=== PATIENT | female | born 1955 | race Hispanic/Latino ===

== ENCOUNTER 2021-02-07 07:51 | Emergency (ER) | payer OTHER ==
--- OUTSIDE RECORDS SUMMARY | 2021-02-07 07:55 | XMS REPORT | Continuity of Care Document ---
:1955 Author Organization [facility] t Address [address] [place] [address] Care Team Providers Name Role Phone Asked, No Pcp Primary Care Physician Unavailable Singer PARRA Attending Clinician Doctor Unassigned, Name Attending Clinician Unavailable Melquiades BOSCH, R Attending Clinician Problems This patient has no known problems. Allergies, Adverse Reactions, Alerts This patient has no known allergies or adverse reactions. Social History Social Habit Start Date Stop Date Quantity Comments Source Sex Assigned At [birth year] [facility]ist 00:00:00 00:00:00 Medications This patient has no known medications. Procedures This patient has no known procedures. Plan of Care Planned Activity Planned Date Details Comments Source Future Scheduled 2021-03-13 INFLUENZA VACCINE [place] [employer] [facility] 00:00:00 [code = INFLUENZA VACCINE] Future Scheduled 2007 BREAST CANCER [facility] Test 00:00:00 SCREENING [code = BREAST CANCER SCREENING] Future Scheduled 2007 COLONOSCOPY SCREENING [place] [employer] [facility] 00:00:00 [code = COLONOSCOPY SCREENING] Future Scheduled 2007 SHINGLES VACCINES [place] [employer] [facility] 00:00:00 (#1) [code = SHINGLES VACCINES (#1)] Future Scheduled [facility] malignant neoplasm of cervix (procedure) [code = 589775281] Future Scheduled 1969 COVID-19 VACCINE (1) [facility]inf[facility] [employer] [facility] 00:00:00 [code = COVID-19 VACCINE (1)] Encounters Start End Encounter Admission Attending Care Care Encounter Source Date/Time Date/Time Type Type Clinicians Facility Department ID 2020-07-18 2020-07-18 Emergency Singer [facility] [place] [id number] 08:45:00 10:00:00 Marty Carbone [id number] [place] [id number] [place] [id number] 2020-07-18 2020-07-18 Orders Doctor SAVANA [id number] 00:00:00 00:00:00 Only UnassignedLISSY [id number] [place] [id number] 2019-06-21 2019-06-21 Orders Doctor SAVANA [id number] 00:00:00 00:00:00 Only UnassignedLISSY [id number] [place] [id number] 2019-02-22 2019-02-22 [facility] [id number] 10:06:44 23:59:00 Encounter aChato [id number] [place] [id number] [place] [id number] Results This patient has no known results.
[2021-02-07 08:58] LABS: Urine Blood Trace-intact (Negative); Urine Glucose Negative (Negative); Urine Protein Negative (Negative); Urine Specific Gravity 1.015 (1.005-1.030)
[2021-02-07 10:07] LABS: Absolute Lymphocytes (CBC) 1.9 K/uL (0.7-4.9); Basophils % 0.7 % (0-1.3); Hematocrit 43.2 % (36.0-45.0); Lymphocytes % 19.1 % (15.3-44.8); MPV 9.3 fL (7.6-11.3); RBC Red Blood Cell Count 4.97 M/uL (3.86-4.86)
[2021-02-07 10:14] LABS: Protime INR 1.05
--- NOTE | 2021-02-07 10:14 | RAD REPORT ---
EXAM DESCRIPTION: CT - Abdomen Pelvis W Contrast - 02/07/2021 10:03 am CLINICAL HISTORY: Abdominal pain COMPARISON: none. TECHNIQUE: Computed axial tomography of the abdomen pelvis was obtained. 100 cc Isovue-300 was admin istered intravenously. Oral contrast was not requested which limits evaluation of bowel. All CT scans are performed using dose optimization technique as appropriate and may include automated exposure control or mA/KV adjustment according to patient size. FINDINGS: Mild fatty liver. Spleen, pancreas, right adrenal and kidneys appear unremarkable. 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 The appendix is normal caliber. 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 .
[2021-02-07 10:26] LABS: ALT/SGPT 23 U/L (12-78); AST/SGOT 16 U/L (15-37); Albumin 3.8 g/dL (3.4-5.0); Alkaline Phosphatase 135 U/L (45-117); BUN Blood Urea Nitrogen 16 mg/dL (7-18); Bicarbonate 31 mmol/L (21-32); Bilirubin Direct 0.1 mg/dL (0-0.2); Bilirubin Total 0.6 mg/dL (0.2-1.0); Glucose Level 103 mg/dL (74-106); Magnesium 2.1 mg/dL (1.8-2.4); NT PRO-BNP 39 pg/mL (<125); Potassium 3.9 mmol/L (3.5-5.1); Protein, Total 8.2 g/dL (6.4-8.2); Sodium Level 143 mmol/L (136-145); Troponin (Emerg Dept Use Only) < 0.02 ng/mL (0.0-0.045)
--- NOTE | 2021-02-07 11:16 | RAD REPORT ---
EXAM DESCRIPTION: USCarotid Artery Bilateral02/07/2021 10:59 am CLINICAL HISTORY: Dizziness COMPARISON: None FINDINGS: The velocity of the right internal carotid artery equals 74 cm/sec. The right ICA/CCA rati o .9 The velocity of the left internal carotid artery equals 81 cm/sec. The left ICA/CCA ratio 1.1 Plaque is not visualized within carotid arteries The vertebral arteries demonstrate antegrade flow IMPRESSION: No significant abnormality displayed NASCET criteria used. Mild 0-49% stenosis Moderate 50-69% stenosis Severe 70-99% stenosis
--- NOTE | 2021-02-07 11:56 | RAD REPORT ---
EXAM DESCRIPTION: MRI - Brain Wo Cont - 02/07/2021 11:44 am CLINICAL HISTORY: TIA COMPARISON: 2016 TECHNIQUE: Axial, sagittal, and coronal magnetic resonance images of the brain were obtained. FINDINGS: 7 millimeter area of low signal right frontal lobe unchanged. No surrounding edema. This p robably is cavernous angioma. Diffusion-weighted/ADC mapping does not reveal evidence of acute infarction. The ventricles are normal caliber. An extra-axial fluid collection is not noted. Fluid within the sinuses/mastoids is not seen IMPRESSION: 7 millimeter cavernous angioma right frontal lobe are unchanged No acute intracranial abnormality noted
--- NOTE | 2021-02-07 12:07 | EDPHYS ---
Physician Documentation [facility] Name: Kathrine España Age: 65 yrs Sex: Female : 1955 Arrival Date: 02/07/2021 Time: 07:54 Bed 24 Private MD: ED Physician Jose Angel Bustos HPI: 02/07 09:34 This 65 yrs old Female presents to ER via Ambulatory with complaints of roscoe Headache, Diverticulitis. 09:34 The patient complains of pain to the forehead, left ear and left cheek. The patient roscoe describes the headache as aching, constant. Onset: The symptoms/episode began/occurred 1 day(s) ago. Associated signs and symptoms: Pertinent positives: paresthesias. Severity of symptoms: At its worst the pain was mild, moderate, in the emergency department the pain is unchanged. Headache History: Denies prior headaches. The symptoms are alleviated by nothing. the symptoms are aggravated by nothing. The patient has not experienced similar symptoms in the past. Historical: - Allergies: 08:20 No Known Allergies; iw - Home Meds: 08:20 valsartan-hydrochlorothiazide 80-12.5 mg Oral tab 1 tab once daily [Active]; Cipro 500 iw mg Oral tab 1 tab every 12 hours [Active]; metronidazole 500 mg Oral tab 3 times per day [Active]; - PMHx: 08:20 GERD; Hypertension; Diverticulitis; iw - PSHx: 08:20 section; iw - Immunization history:: Client reports receiving the 2nd dose of the Covid vaccine, Flu vaccine is not up to date. - Social history:: Smoking status: Patient denies any tobacco usage or history of. - Family history:: not pertinent. ROS: 09:34 Constitutional: Negative for fever, chills, and weight loss, Eyes: Negative for injury, roscoe pain, redness, and discharge, ENT: Negative for injury, pain, and discharge, Neck: Negative for injury, pain, and swelling, Cardiovascular: Negative for chest pain, palpitations, and edema, Respiratory: Negative for shortness of breath, cough, wheezing, and pleuritic chest pain, Back: Negative for injury and pain, : Negative for injury, bleeding, discharge, and swelling, MS/Extremity: Negative for injury and deformity, Skin: Negative for injury, rash, and discoloration, Psych: Negative for depression, anxiety, suicide ideation, homicidal ideation, and hallucinations, Allergy/Immunology: Negative for hives, rash, and allergies, Endocrine: Negative for neck swelling, polydipsia, polyuria, polyphagia, and marked weight changes, Hematologic/Lymphatic: Negative for swollen nodes, abnormal bleeding, and unusual bruising. 09:34 Abdomen/GI: Positive for abdominal pain, of the left upper quadrant. 09:34 Neuro: Positive for headache, numbness, of the face and left cheek and left ear and forehead. Exam: 09:34 Constitutional: This is a well developed, well nourished patient who is awake, alert, roscoe and in no acute distress. Head/Face: Normocephalic, atraumatic. Eyes: Pupils equal round and reactive to light, extra-ocular motions intact. Lids and lashes normal. Conjunctiva and sclera are non-icteric and not injected. Cornea within normal limits. Periorbital areas with no swelling, redness, or edema. ENT: Nares patent. No nasal discharge, no septal abnormalities noted. Tympanic membranes are normal and external auditory canals are clear. Oropharynx with no redness, swelling, or masses, exudates, or evidence of obstruction, uvula midline. Mucous membranes moist. Neck: Trachea midline, no thyromegaly or masses palpated, and no cervical lymphadenopathy. Supple, full range of motion without nuchal rigidity, or vertebral point tenderness. No Meningismus. Chest/axilla: Normal chest wall appearance and motion. Nontender with no deformity. No lesions are appreciated. Cardiovascular: Regular rate and rhythm with a normal S1 and S2. No gallops, murmurs, or rubs. Normal PMI, no JVD. No pulse deficits. Respiratory: Lungs have equal breath sounds bilaterally, clear to auscultation and percussion. No rales, rhonchi or wheezes noted. No increased work of breathing, no retractions or nasal flaring. Back: No spinal tenderness. No costovertebral tenderness. Full range of motion. Female : Normal external genitalia. Skin: Warm, dry with normal turgor. Normal color with no rashes, no lesions, and no evidence of cellulitis. MS/ Extremity: Pulses equal, no cyanosis. Neurovascular intact. Full, normal range of motion. Psych: Awake, alert, with orientation to person, place and time. Behavior, mood, and affect are within normal limits. 09:34 Abdomen/GI: Inspection: abdomen appears normal, Bowel sounds: normal, Palpation: mild abdominal tenderness, in the left upper quadrant, Liver: no appreciated palpable abnormalities, Hernia: not appreciated. 12:32 ECG was reviewed by the Attending Physician. [facility] Vital Signs: 08:17 BP 131 / 78; Pulse 86; Resp 18 S; Temp 98.8(TE); Pulse Ox 100% on R/A; Weight 97.52 kg iw (R); Height 5 ft. 3 in. (160.02 cm) (R); Pain 8/10; 12:49 BP 141 / 72; Pulse 78; Pulse Ox 99% on R/A; tr6 08:17 Body Mass Index 38.09 (97.52 kg, 160.02 cm) NIH Stroke Scale Scores: 09:34 NIHSS Score: 0 roscoe [place] Coma Score: 09:37 Eye Response: spontaneous(4). Verbal Response: oriented(5). Motor Response: obeys [facility] commands(6). Total: 15. MDM: 09:14 Patient medically screened. roscoe 09:37 Differential diagnosis: cerebral vascular accident, hypoglycemia, sinusitis, roscoe subarachnoid bleed, tension headache, vasomotor headache. Data reviewed: vital signs, nurses notes, lab test result(s), EKG, radiologic studies, CT scan, MRI. Data interpreted: quality assurance monitor: rate is 86 beats/min, rhythm is regular, Pulse oximetry: on room air is 100 %. Test interpretation: by ED physician or midlevel provider: ECG, plain radiologic studies. Counseling: I had a detailed discussion with the patient and/or guardian regarding: the historical points, exam findings, and any diagnostic results supporting the discharge/admit diagnosis, lab results, radiology results. 02/07 08:57 Order name: Urine Dipstick-Ancillary; Complete Time: 10:15 EDNC 02/07 09:33 Order name: Basic Metabolic Panel; Complete Time: 11:42 [facility] 02/07 09:33 Order name: CBC with Diff; Complete Time: 10:15 [facility] 02/07 09:33 Order name: LFT's; Complete Time: 11:42 [facility] 02/07 09:33 Order name: Magnesium; Complete Time: 11:42 02/07 09:33 Order name: NT PRO-BNP; Complete Time: 11:42 02/07 09:33 Order name: PT-INR; Complete Time: 11:42 02/07 09:33 Order name: Troponin (emerg Dept Use Only); Complete Time: 11:42 02/07 09:33 Order name: XRAY Chest (1 view) 02/07 09:33 Order name: Urine Culture 02/07 09:33 Order name: CT Abd/Pelvis - IV Contrast Only; Complete Time: 10:15 02/07 09:37 Order name: US Carotid Artery Bilateral; Complete Time: 11:42 02/07 11:32 Order name: CREATININE WHOLE BLOOD; Complete Time: 11:42 EDMS 02/07 09:33 Order name: EKG; Complete Time: 09:34 02/07 09:33 Order name: Cardiac monitoring; Complete Time: 12:22 02/07 09:33 Order name: EKG - Nurse/Tech; Complete Time: 12:22 02/07 09:33 Order name: IV Saline Lock; Complete Time: 10:00 02/07 09:33 Order name: Labs collected and sent; Complete Time: 10:00 02/07 09:33 Order name: O2 Per Protocol; Complete Time: 10:00 02/07 09:33 Order name: O2 Sat Monitoring; Complete Time: 10:00 02/07 11:28 Order name: Brain Wo Cont; Complete Time: 12:06 EDMS EC:32 Rate is 75 beats/min. Rhythm is regular. QRS Ragland is Normal. SC interval is normal. QRS roscoe interval is normal. QT interval is normal. No Q waves. T waves are Normal. No ST changes noted. Clinical impression: Normal ECG and No evidence of ischemia. Interpreted by me. Reviewed by me. Administered Medications: 11:59 Drug: NS 0.9% 1000 ml Route: IV; Rate: 1 bolus; Site: right antecubital; tr6 11:59 Drug: foLIC Acid 1 mg Route: IVPB; Site: right antecubital; tr6 12:31 Drug: Aspirin Chewable Tablet 162 mg Route: PO; tr6 Disposition Summary: 02/07/21 12:06 Discharge Ordered Location: Home roscoe Problem: new roscoe Symptoms: have improved roscoe Condition: Stable roscoe Diagnosis - Abdominal pain, unspecified roscoe - Weakness roscoe - Atypical facial pain roscoe - Paresthesia of skin - facial roscoe Followup: roscoe - With: Private Physician - When: 2 - 3 days - Reason: Recheck today's complaints, Continuance of care, Re-evaluation by your physician Followup: roscoe - With: - When: 2 - 3 days - Reason: Recheck today's complaints, Continuance of care, Re-evaluation by your physician Followup: roscoe - With: - When: 2 - 3 days - Reason: Recheck today's complaints, Continuance of care, Re-evaluation by your physician Discharge Instructions: - Discharge Summary Sheet roscoe - Abdominal Pain, Adult roscoe - Paresthesia roscoe - Weakness roscoe - Fatigue roscoe - Weakness, Quog-br-Icwn roscoe - Aspirin and Your Heart roscoe - Paresthesia, Botl-rb-[id number] roscoe Forms: - Medication Reconciliation Form roscoe - Thank You Letter rsocoe - Antibiotic Education roscoe - Prescription Opioid Use roscoe Prescriptions: - Pepcid 20 mg Oral Tablet - take 1 tablet by ORAL route every 12 hours for 15 days; 30 tablet; Refills: 0, roscoe Product Selection Permitted NIH Stroke Scale - NIH Stroke Score Date: 02/07/2021 Time: 09:34 Total Score = 0 1a. Level of Consciousness (LOC) - 0(Alert) 1b. Level of Consciousness (LOC) (Month \T\ Age) - 0(Both) 1c. LOC Commands (Open \T\ Closes Eyes/Business Support) - 0(Both) 2. Best Gaze (Lateral Gaze Paresis) - 0(Normal) 3. Visual Field Loss - 0(No visual loss) 4. Facial Palsy - 0(Normal) 5a. Left Arm: Motor (10-second hold) - 0(No drift) 5b. Right Arm: Motor (10-second hold) - 0(No drift) 6a. Left Leg: Motor (5-second hold - always test supine) - 0(No drift) 6b. Right Leg: Motor (5-second hold - always test supine) - 0(No drift) 7. Limb Ataxia (finger/nose \T\ heel/weaver - test with eyes open) - 0(Absent) 8. Sensory Loss (pinprick arms/legs/face) - 0(Normal) 9. Best Language: Aphasia (description/naming/reading) - 0(No aphasia) 10. Dysarthria (speech clarity - read or repeat words) - 0(Normal) 11. Extinction and Inattention (visual/tactile/auditory/spatial/personal) - 0(No abnormality) Initials: roscoe Signatures: Dispatcher [employer] Jose Angel Rodriguez MD MD cha Williams, Irene RN RN iw Mely Alba RN RN tr6 Corrections: (The following items were deleted from the chart) 11:28 09:34 MR STROKE PROTOCOL+MRI.RAD.MARIANAZ ordered. EDMS EDMS
--- NOTE | 2021-02-07 12:07 | ER ---
Nurse's Notes [facility] Name: Kathrine España Age: 65 yrs Sex: Female : 1955 Arrival Date: 02/07/2021 Time: 07:54 Bed 24 Private MD: Diagnosis: Abdominal pain, unspecified;Weakness;Atypical facial pain;Paresthesia of skin-facial Presentation: 02/07 08:17 Chief complaint: Patient states: "I have 2 problems going on, one of them I think it's iw my diverticulitis flaring up and it's been going on for a while, the other one is my head is hurting and only on the left side". Pt c/o pain to LLQ and left-sided headache. Pt reports teledoc consultation and reports she started 2 antibiotics last night for diverticulitis. Coronavirus screen: headache. Ebola Screen: Patient negative for fever greater than or equal to 101.5 degrees Fahrenheit, and additional compatible Ebola Virus Disease symptoms. Initial Sepsis Screen: Does the patient meet any 2 criteria? No. Patient's initial sepsis screen is negative. Does the patient have a suspected source of infection? No. Patient's initial sepsis screen is negative. Risk Assessment: Do you want to hurt yourself or someone else? Patient reports no desire to harm self or others. Onset of symptoms was January 2021. 08:17 Method Of Arrival: Ambulatory iw 08:17 Acuity: LYDIA 3 iw Triage Assessment: 12:52 Pain: Also complains of. tr6 Historical: - Allergies: 08:20 No Known Allergies; iw - Home Meds: 08:20 valsartan-hydrochlorothiazide 80-12.5 mg Oral tab 1 tab once daily [Active]; Cipro 500 iw mg Oral tab 1 tab every 12 hours [Active]; metronidazole 500 mg Oral tab 3 times per day [Active]; - PMHx: 08:20 GERD; Hypertension; Diverticulitis; iw - PSHx: 08:20 section; iw - Immunization history:: Client reports receiving the 2nd dose of the Covid vaccine, Flu vaccine is not up to date. - Social history:: Smoking status: Patient denies any tobacco usage or history of. - Family history:: not pertinent. Screenin:59 Abuse screen: Denies threats or abuse. Denies injuries from another. Nutritional tr6 screening: No deficits noted. Tuberculosis screening: No symptoms or risk factors identified. Fall Risk None identified. Assessment: 09:15 General: Appears in no apparent distress. Behavior is calm, cooperative, appropriate tr6 for age. Pain: Complains of pain in face and left upper quadrant and left cheek and left ear and forehead. Neuro: No deficits noted. Level of Consciousness is awake, alert, obeys commands, Oriented to person, place, time, situation, Appropriate for age Straightening Machine Operator are equal bilaterally Moves all extremities. Gait is steady, Speech is normal, Facial symmetry appears normal. Cardiovascular: No deficits noted. Respiratory: No deficits noted. GI: No deficits noted. Abdomen is round obese, Bowel sounds present X 4 quads. GI: Reports lower abdominal pain. : No deficits noted. EENT: No deficits noted. Derm: No deficits noted. Musculoskeletal: No deficits noted. 09:59 Reassessment: pt transferred to CT. tr6 Vital Signs: 08:17 BP 131 / 78; Pulse 86; Resp 18 S; Temp 98.8(TE); Pulse Ox 100% on R/A; Weight 97.52 kg iw (R); Height 5 ft. 3 in. (160.02 cm) (R); Pain 8/10; 12:49 BP 141 / 72; Pulse 78; Pulse Ox 99% on R/A; tr6 08:17 Body Mass Index 38.09 (97.52 kg, 160.02 cm) iw [place] Coma Score: 09:37 Eye Response: spontaneous(4). Verbal Response: oriented(5). Motor Response: obeys [facility] commands(6). Total: 15. NIH Stroke Scale Scores: 09:34 NIHSS Score: 0 [facility] ED Course: 07:54 Patient arrived in ED. as 08:20 Triage completed. iw 08:20 Arm band placed on. iw 09:05 Jose Angel Bustos MD is Attending Physician. [facility] 09:31 Mely Alba RN is Primary Nurse. tr6 09:58 Inserted saline lock: 18 gauge in right antecubital area, using aseptic technique. tr6 Blood collected. 09:59 No apparent distress. tr6 09:59 Patient has correct armband on for positive identification. Bed in low position. Call tr6 light in reach. Door closed. Noise minimized. Visitors limited. Lights dimmed. Moved to private room. Warm blanket given. 09:59 No provider procedures requiring assistance completed. tr6 10:02 CT Abd/Pelvis - IV Contrast Only In Process Unspecified. EDMS 10:53 US Carotid Artery Bilateral In Process Unspecified. EDMS 11:29 Brain Wo Cont In Process Unspecified. EDMS 12:06 Javon Kahn MD is Referral Physician. roscoe 12:06 Anthony Silverio MD is Referral Physician. roscoe 12:29 XRAY Chest (1 view) In Process Unspecified. EDMS 12:50 IV discontinued, intact, bleeding controlled, No redness/swelling at site. Pressure tr6 dressing applied. Administered Medications: 11:59 Drug: NS 0.9% 1000 ml Route: IV; Rate: 1 bolus; Site: right antecubital; tr6 11:59 Drug: foLIC Acid 1 mg Route: IVPB; Site: right antecubital; tr6 12:31 Drug: Aspirin Chewable Tablet 162 mg Route: PO; tr6 Outcome: 12:06 Discharge ordered by . roscoe 12:50 Discharged to home ambulatory. tr6 12:50 Condition: good 12:50 Discharge instructions given to patient, Instructed on discharge instructions, follow up and referral plans. Demonstrated understanding of instructions, follow-up care, medications, Prescriptions given X 1. 12:52 Patient left the ED. tr6 NIH Stroke Scale - NIH Stroke Score Date: 02/07/2021 Time: 09:34 Total Score = 0 1a. Level of Consciousness (LOC) - 0(Alert) 1b. Level of Consciousness (LOC) (Month \\T\\ Age) - 0(Both) 1c. LOC Commands (Open \\T\\ Closes Eyes/Planning Aide) - 0(Both) 2. Best Gaze (Lateral Gaze Paresis) - 0(Normal) 3. Visual Field Loss - 0(No visual loss) 4. Facial Palsy - 0(Normal) 5a. Left Arm: Motor (10-second hold) - 0(No drift) 5b. Right Arm: Motor (10-second hold) - 0(No drift) 6a. Left Leg: Motor (5-second hold - always test supine) - 0(No drift) 6b. Right Leg: Motor (5-second hold - always test supine) - 0(No drift) 7. Limb Ataxia (finger/nose \\T\\ heel/weaver - test with eyes open) - 0(Absent) 8. Sensory Loss (pinprick arms/legs/face) - 0(Normal) 9. Best Language: Aphasia (description/naming/reading) - 0(No aphasia) 10. Dysarthria (speech clarity - read or repeat words) - 0(Normal) 11. Extinction and Inattention (visual/tactile/auditory/spatial/personal) - 0(No abnormality) Initials: roscoe Signatures: Dispatcher [employer] Jose Angel Rodriguez MD MD cha Martinez, Amelia as Williams, Irene, RN LIBIA Mely Alba RN RN tr6
[2021-02-07] MEDS ORDERED: ASPIRIN 81 MG CHEWABLE TABLET ONE (12:13)
[2021-02-07] MEDS ORDERED: FOLIC ACID 5 MG/ML VIAL ONE (12:15)
[2021-02-07] MEDS ORDERED: NA CHLORIDE 0.9% 1,000 ML ONE (12:15)
--- NOTE | 2021-02-07 12:34 | RAD REPORT ---
EXAM DESCRIPTION: Daljit Single View02/07/2021 12:29 pm CLINICAL HISTORY: Abdominal pain COMPARISON: July 2020 FINDINGS: The lungs appear clear of acute infiltrate. The heart is normal size IMPRESSION: No acute abnormalities displayed
[2021-02-07 21:39] VITALS: TEMP 98.8
[2021-02-07 21:41] VITALS: BP 141/72; O2SAT 99
== END 2021-02-07 12:52 | disposition home or self-care (01) ==
LOC: ER 07:51
DX: G50.1 Atypical facial pain (principal); R10.12 Left upper quadrant pain; R53.1 Weakness; R20.2 Paresthesia of skin; I10 Essential (primary) hypertension
CPT/HCPCS: 93005; 85025; 87086; 80048; 36415; 83735; 85610; 82565; 80076; 81003; 84484; 83880; 74177; 71045; 93880; 70551; 96374; 99284; Q9967; J7030; 87088

== ENCOUNTER 2021-06-08 06:11 | Emergency (ER) | payer OTHER ==
--- OUTSIDE RECORDS SUMMARY | 2021-06-08 06:14 | XMS REPORT | Continuity of Care Document ---
:1955 Author Organization [facility] t Address [address] [place] [address] Care Team Providers Name Role Phone Easton DO Attending Clinician EASTON Attending Clinician Unavailable Doctor Unassigned, Name Attending Clinician Unavailable Melquiades BOSCH, R Attending Clinician Payers Payer Name Policy Type Policy Number Effective Date Expiration Date S ource Problems Condition Condition Condition Status Onset Resolution Last Treating Co mments Source Name Details Category Date Date Treatment Clinician Date No known No known Disease Unive rs active active ity of problems problems [facility] Allergies, Adverse Reactions, Alerts Allergy Allergy Status Severity Reaction(s) Onset Inactive Treating Comm ents Source Name Type Date Date Clinician NO KNOWN Drug Active Univers ALLERGIE Class ity of S [facility] Social History Social Habit Start Date Stop Date Quantity Comments Source Exposure to SARS-CoV-2 Not sure [facility] Sex Assigned At Uni versity of [facility] Smoking Status Start Date Stop Date Source Unknown if ever smoked Universit y of [facility] Medications Ordered Filled Start Stop Current Ordering Indication Dosage Frequency Signature Comments Components Source Medication Medication Date Date Medication? Clinician (SIG) Name Name benzonatate Yes [id number] 100mg Take 1 Univers 100 mg [id number] capsule by ity of capsule 00:00: mouth 3 [place] 00 (three) Medical times Branch daily as needed for Cough. chlorphenir Yes [id number] 4mg Take 1 Univers amine 4 mg [id number] tablet by i ty of tablet 00:00: mouth [place] 00 every 6 Medical (six) Branch hours as needed for Allergies or Runny nose. multivitami Yes [id number] 1{capsu Take 1 Univers n capsule 07-18 [id number] le} capsule by i ty of 00:00: mouth [place] 00 daily. Medical Branch calcium-mag Yes [id number] Take as Univers nesium-zinc 07-18 [id number] directed i ty of [id number] 00:00: for daily [place] mg Tab 00 dose. Medical Branch vitamin 2020- No [id number] 1{tbl} Take 1 Univers D3-folic 07-18 [id number] tablet by it y of acid 5,000 00:00: 05:59 mouth [place] unit- 1 mg 00 :00 daily for Medi [facility] Tab 30 days. Branch Vital Signs Vital Name Observation Time Observation Value Comments Source Systolic blood 2020-07-18 14:39:00 131 mm[Hg] Univer sity of [facility] Diastolic blood 2020-07-18 14:39:00 81 mm[Hg] [facility] Heart rate 2020-07-18 14:39:00 85 /min [facility] Body temperature 2020-07-18 14:39:00 37.83 [facility] Respiratory rate 2020-07-18 14:39:00 20 /min General acute hospital Body height 2020-07-18 14:39:00 160 cm [facility] Oxygen saturation in 2020-07-18 14:39:00 95 /min [facility] Arterial blood by [facility] [place] [facility] Pulse oximetry Branch Systolic blood 2020-07-18 14:39:00 131 mm[Hg[facility] 2020-07-18 14:39:00 81 mm[Hg[facility] 2020-07-18 14:39:00 85 /[facility] 2020-07-18 14:39:00 37.83 [facility] Respiratory rate 2020-07-18 14:39:00 20 /min [facility] acute hospital Body height 2020-07-18 14:39:00 160 cm Universi ty of [facility] Oxygen saturation in 2020-07-18 14:39:00 95 /min [facility] Arterial blood by [facility] [place] [facility] Pulse oximetry Branch Procedures Procedure Date / Time Performing Clinician Source Performed NOTICE OF PRIVACY 2020-07-18 14:23:56 Doctor Unassigned, No [facility] Name Medical Branch AUTHORIZATION FOR 2019-06-21 06:01:00 Doctor Unassigned, No [facility]I Name Medical Branch DEXA AXIAL (HIP AND 2019-02-22 15:19:38 Chato Arnett [facility] Medical Branch NOTICE OF PRIVACY 2019-02-22 15:07:15 Doctor Unassigned, No [facility] Name Medical Branch CONSENT/REFUSAL FOR 2019-02-22 15:07:03 Doctor Unassigned, No [facility] Name Medical Branch ASSIGNMENT OF BENEFITS 2019-02-22 15:06:51 Doctor Unassigned, No [facility] Branch Encounters Start End Encounter Admission Attending Care Care Encounter Source Date/Time Date/Time Type Type Clinicians Facility Department ID 2020-07-18 2020-07-18 Adenike Easton [facility] [id number] Univers 08:45:00 10:00:00 Marty Carbone [id number] i ty of [place] 4.2.7.2.686 [facility] [id number] [facility] 084 Branch 2020-07-18 2020-07-18 Emergency Singer WVELI [id number] 08:45:00 10:00:00 Marty Carbone [id number] [place] [id number] [place] [address] [id number] 2020-07-18 2020-07-18 Emergency X SINGER WVELI ERT [id number] Univers 08:45:00 08:45:00 MARTY hogue [facility] 2020-07-18 2020-07-18 Orders Doctor SAWANT [id number] Univers 00:00:00 00:00:00 Only Unassigned, LISSY [id number] ity of [place] [facility] 4.2.7.2.686 [place] as [id number] [facility] 009 Branch 2020-07-18 2020-07-18 Orders Doctor SAVANA [id number] 00:00:00 00:00:00 Only Unassigned, LISSY [id number] [place] [facility] 4.2.7.2.686 [id number] 2019-06-21 2019-06-21 Orders Doctor SAVANA [id number] Univers 00:00:00 00:00:00 Only Unassigned, LISSY [id number] ity of [place] [facility] 4.2.7.2.686 [place] as [id number] [facility] 009 Branch 2019-06-21 2019-06-21 Orders Doctor SAVANA [id number] 00:00:00 00:00:00 Only Unassigned, LISSY [id number] [place] [facility] 4.2.7.2.686 [id number] [facility] 2019-02-22 2019-02-22 [facility] [id number] [facility] 10:06:44 23:59:00 Encounter aChatoton [id number] ity of [place] 4.2.7.2.686 [facility] [id number] [facility] 800 Branch 2019-02-22 2019-02-22 [facility] [id number] 10:06:44 23:59:00 Encounter aChato [place] [id number] [place] 4.2.7.2.686 [place] [id number] Results Test Description Test Time Test Comments Results Result [facility] e Comments DEXA AXIAL (HIP 2019-02-22 HISTORY: Universit y of AND SPINE) 15:54:23 Screening for [place] [facility] osteoporosis. Branch TECHNIQUE: Bone density estimation is done using DEXA scan, over the righthip and lumbar spines. FINDINGS: Details of the results are enclosed for your review. The summaryis as follows. RIGHT HIP:BMD value is 0.981 gm/sq cm, with T-score of -0.2. Estimated BMD in theneck was 0.909 g/sq cm with T score of - 0.9. LUMBAR SPINES:Average BMD value from L1 through L4 is 1.116 gm/sq cm, with T-score - 0.6. CONCLUSION: No osteoporosis or osteopenia detected. [facility], Radiant Results Inft User - 02/22/2019 10:56 AM CDTHISTORY: Screening for osteoporosis. TECHNIQUE: Bone density estimation is done using DEXA scan, over the righthip and lumbar spines.FINDINGS: Details of the results are enclosed for your review. The summaryis as follows.RIGHT HIP:BMD value is 0.981 gm/sq cm, with T-score of -0.2. Estimated BMD in theneck was 0.909 g/sq cm with T score of - 0.9.LUMBAR SPINES:Average BMD value from L1 through L4 is 1.116 gm/sq cm, with T-score - 0.6.CONCLUSION: No osteoporosis or osteopenia detected.
[2021-06-08] MEDS ORDERED: DIPHENHYDRAMINE 25 MG TAB/CAP ONE (06:54)
[2021-06-08] MEDS ORDERED: FAMOTIDINE 20 MG TAB ONE (06:55)
[2021-06-08] MEDS ORDERED: dexAMETHasone 10 MG/ML VIAL ONE (06:55)
[2021-06-08 06:56] LABS: Urine Blood Trace-intact (Negative); Urine Glucose Negative (Negative); Urine Protein Negative (Negative); Urine Specific Gravity 1.015 (1.005-1.030)
--- NOTE | 2021-06-08 09:53 | ER ---
Nurse's Notes [facility] Name: Kathrine España Age: 66 yrs Sex: Female : 1955 Arrival Date: 06/08/2021 Time: 06:14 Bed 5 Private MD: Diagnosis: Dysuria;Allergy to other foods Presentation: 06/08 06:40 Chief complaint: Patient states: she has had a sore throat since then woke up bb this morning with her face swollen and tooth pain left lower jaw. Coronavirus screen: At this time, the client does not indicate any symptoms associated with coronavirus-19. Ebola Screen: No symptoms or risks identified at this time. Initial Sepsis Screen: Does the patient meet any 2 criteria? No. Patient's initial sepsis screen is negative. Does the patient have a suspected source of infection? No. Patient's initial sepsis screen is negative. Risk Assessment: Do you want to hurt yourself or someone else? Patient reports no desire to harm self or others. Onset of symptoms was June 06, 2021. 06:40 Method Of Arrival: Ambulatory bb 06:40 Acuity: LYDIA 3 bb Triage Assessment: 10:30 General: Appears in no apparent distress. Behavior is calm, cooperative, appropriate bp for age. Historical: - Allergies: 06:42 No Known Allergies; bb - Home Meds: 06:42 losartan 50 mg oral tab 1 tab once daily [Active]; bb - PMHx: 06:42 Hypertension; GERD; Diverticulitis; bb - PSHx: 06:42 section; bb - Immunization history:: Adult Immunizations up to date, Client reports receiving the 2nd dose of the Covid vaccine. - Social history:: Smoking status: Patient denies any tobacco usage or history of. Screenin:06 Abuse screen: Denies threats or abuse. Denies injuries from another. Nutritional bp screening: No deficits noted. Tuberculosis screening: No symptoms or risk factors identified. Fall Risk None identified. Assessment: 07:00 General: SEE TRIAGE NOTE. RECD REPORT FROM LINNEA REZA. 66YO HF P/W SORE THROAT AND bp MANDIBULAR SWELLING. LAB RESULTS PENDING. 10:29 Pain: Denies pain. Respiratory: Airway is patent Respiratory effort is even, unlabored, bp Breath sounds are clear. EENT: No deficits noted. Throat is reddened. Vital Signs: 06:40 BP 135 / 77; Pulse 80; Resp 16 S; Temp 99.1(O); Pulse Ox 98% on R/A; Weight 98.88 kg bb (R); Height 5 ft. 3 in. (160.02 cm) (R); Pain 8/10; 08:05 BP 102 / 70; Pulse 71; Resp 16; Pulse Ox 97% ; bp 06:40 Body Mass Index 38.62 (98.88 kg, 160.02 cm) ED Course: 06:14 Patient arrived in ED. bp1 06:30 Wilson Huston NP is PHCP. pm1 06:30 Yoshi Jules MD is Attending Physician. pm1 06:37 Linnea Evans is Primary Nurse. df1 06:38 Group A Streptococcus Rapid Sc Sent. df1 06:42 Triage completed. bb 06:42 Arm band placed on Patient placed in an exam room, on a stretcher, on pulse oximetry. bb 06:52 Strep Sent. df1 07:24 Lucila Manley RN is Primary Nurse. kd3 07:50 Urine Microscopic Only Sent. kd3 07:50 Throat Culture Sent. kd3 08:06 Patient has correct armband on for positive identification. Bed in low position. Call bp light in reach. Side rails up X2. 10:29 No provider procedures requiring assistance completed. Patient did not have IV access bp during this emergency room visit. Administered Medications: 06:56 Drug: Decadron (dexamethasone) 10 mg Route: IM; Site: right deltoid; df1 06:56 Drug: Benadryl (diphenhydrAMINE) 25 mg Route: PO; df1 06:56 Drug: Pepcid (famotidine) 20 mg Route: PO; df1 Outcome: 09:52 Discharge ordered by MD. pm1 10:29 Discharged to home ambulatory. bp 10:29 Condition: stable 10:29 Discharge instructions given to patient. 10:31 Patient left the ED. bp Signatures: Saskia Rios RN RN bb Wilson Huston, ZAINAB BLOOD BANK COORDINATOR pm1 Andrey Zaman RN RN bp Priscilla Maria bp1 Linnea Evans df1 Lucila Manley RN RN kd3
--- NOTE | 2021-06-08 09:53 | EDPHYS ---
Physician Documentation [facility] Name: Kathrine España Age: 66 yrs Sex: Female : 1955 Arrival Date: 06/08/2021 Time: 06:14 Bed 5 Private MD: ED Physician Yoshi Jules HPI: 06/08 06:51 This 66 yrs old Female presents to ER via Ambulatory with complaints of Sore pm1 Throat, Facial Swelling. 06:51 The patient presents with sore throat. The patient describes throat pain as scratchy. pm1 Onset: The symptoms/episode began/occurred 3 day(s) ago. Severity of symptoms: in the emergency department the symptoms are actually worse. Modifying factors: the symptoms are aggravated by possibly pecan pie, unaware of sick contact. Associated signs and symptoms: Pertinent positives: Upper lip swelling. The patient has not experienced similar symptoms in the past. The patient has not recently seen a physician. Patient reports onset of sore throat Thursday after eating pecan pie. Noticed upper lip swelling onset today and took Benadryl 25 mg at home with some improvement. Dental pain to left lower molars not currently present, it's irritated by the presence of food and resolved with flossing. Patient also reports some burning with urination onset one week ago. Historical: - Allergies: 06:42 No Known Allergies; bb - Home Meds: 06:42 losartan 50 mg oral tab 1 tab once daily [Active]; bb - PMHx: 06:42 Hypertension; GERD; Diverticulitis; bb - PSHx: 06:42 section; bb - Immunization history:: Adult Immunizations up to date, Client reports receiving the 2nd dose of the Covid vaccine. - Social history:: Smoking status: Patient denies any tobacco usage or history of. ROS: 06:51 Constitutional: Negative for fever, chills, and weight loss. pm1 06:51 Cardiovascular: Negative for chest pain, palpitations, and edema, Respiratory: Negative for shortness of breath, cough, wheezing, and pleuritic chest pain, Abdomen/GI: Negative for abdominal pain, nausea, vomiting, diarrhea, and constipation, Back: Negative for injury and pain. 06:51 MS/Extremity: Negative for injury and deformity, Skin: Negative for injury, rash, and discoloration. 06:51 Neuro: Negative for headache, weakness, numbness, tingling, and seizure. 06:51 ENT: Positive for sore throat, post nasal drainage, lip swelling, Negative for difficulty swallowing. 06:51 : Positive for burning with urination. 06:51 All other systems are negative. Exam: 06:51 Constitutional: This is a well developed, well nourished patient who is awake, alert, pm1 and in no acute distress. Head/Face: Normocephalic, atraumatic. 06:51 Skin: Warm, dry with normal turgor. Normal color with no rashes, no lesions, and no evidence of cellulitis. MS/ Extremity: Pulses equal, no cyanosis. Neurovascular intact. Full, normal range of motion. 06:51 Eyes: Exam is negative for acute changes, Periorbital structures: appear normal, Pupils: no acute changes, Extraocular movements: intact throughout, Conjunctiva: no acute changes, no injection. 06:51 ENT: Exam is negative for acute changes, Mouth: Lips: mild swelling present to upper lip, Oral mucosa: normal, pink and intact, moist, Gums: normal with healthy appearance, Dental exam: no acute changes, gum swelling, not appreciated, pain, is not appreciated, Voice: is normal. 06:51 Neck: Exam negative for acute changes, External neck: no acute changes, ROM/movement: no acute changes. 06:51 Cardiovascular: Exam negative for acute changes, Rate: normal, Rhythm: regular, Pulses: no pulse deficits are appreciated. 06:51 Respiratory: Exam negative for acute changes, respiratory distress, shortness of breath, Breath sounds: are clear throughout. 06:51 Abdomen/GI: Exam negative for acute changes, Inspection: abdomen appears normal. 06:51 Musculoskeletal/extremity: Exam is negative for acute changes. 06:51 Neuro: Exam negative for acute changes, Orientation: is normal, Mentation: is normal, Motor: is normal, moves all fours. Vital Signs: 06:40 BP 135 / 77; Pulse 80; Resp 16 S; Temp 99.1(O); Pulse Ox 98% on R/A; Weight 98.88 kg bb (R); Height 5 ft. 3 in. (160.02 cm) (R); Pain 8/10; 08:05 BP 102 / 70; Pulse 71; Resp 16; Pulse Ox 97% ; bp 06:40 Body Mass Index 38.62 (98.88 kg, 160.02 cm) bb MDM: 06:38 Patient medically screened. pm1 07:04 Data reviewed: vital signs. Data interpreted: Pulse oximetry: on room air is 98 %. pm1 Interpretation: normal. 07:04 Differential diagnosis: peritonsillar abscess pharyngitis, upper respiratory infection, pm1 Strep pharyngitis, Dental pain, Dental abscess, Allergic reaction, Angioedema. 09:51 Counseling: I had a detailed discussion with the patient and/or guardian regarding: the pm1 historical points, exam findings, and any diagnostic results supporting the discharge/admit diagnosis, lab results, the need for outpatient follow up, to return to the emergency department if symptoms worsen or persist or if there are any questions or concerns that arise at home. 06/08 06:38 Order name: Strep df1 06/08 06:38 Order name: Group A Streptococcus Rapid Sc; Complete Time: 07:01 EDGA 06/08 06:56 Order name: Urine Microscopic Only pm1 06/08 06:56 Order name: Urine Dipstick-Ancillary; Complete Time: 07:01 EDMS 06/08 07:00 Order name: Throat Culture EDMS 06/08 06:41 Order name: Urine Dipstick-Ancillary (obtain specimen); Complete Time: 06:56 df1 Administered Medications: 06:56 Drug: Decadron (dexamethasone) 10 mg Route: IM; Site: right deltoid; df1 06:56 Drug: Benadryl (diphenhydrAMINE) 25 mg Route: PO; df1 06:56 Drug: Pepcid (famotidine) 20 mg Route: PO; df1 Disposition: 19:16 Co-signature as Attending Physician, Yoshi Jules MD. [email or web address] Disposition Summary: 06/08/21 09:52 Discharge Ordered Location: Home pm1 Problem: new pm1 Symptoms: have improved pm1 Condition: Stable pm1 Diagnosis - Dysuria pm1 - Allergy to other foods pm1 Followup: pm1 - With: Emergency Department - When: As needed - Reason: Worsening of condition Followup: pm1 - With: Private Physician - When: 2 - 3 days - Reason: Recheck today's complaints, Continuance of care, Re-evaluation by your physician Discharge Instructions: - Discharge Summary Sheet pm1 - Dysuria pm1 - Food Allergy pm1 Forms: - Medication Reconciliation Form pm1 - Thank You Letter pm1 - Antibiotic Education pm1 - Prescription Opioid Use pm1 Prescriptions: - Benadryl 25 mg Oral Capsule - take 1 capsule by ORAL route every 6 hours As needed; 30 tablet; Refills: 0, pm1 Product Selection Permitted - Pepcid 20 mg Oral Tablet - take 1 tablet by ORAL route every 12 hours for 10 days; 20 tablet; Refills: 0, pm1 Product Selection Permitted - Cephalexin 500 mg Oral Capsule - take 1 capsule by ORAL route every 12 hours for 10 days; 20 capsule; Refills: pm1 0, Product Selection Permitted - Medrol (Ed) 4 mg Oral Tablets, Dose Pack - take 1 tablet by ORAL route as directed - follow package instructions; 1 pm1 packet; Refills: 0, Product Selection Permitted Signatures: Dispatcher [employer] Saskia Baer, LIBIA RN Wilson Mchugh NP COMMUNICATION EQUIPMENT REPAIRER pm1 Yoshi Jules MD MD [facility] Linnea Evans df1
[2021-06-08 10:30] LABS: Urine Bacteria <20 /HPF (<20); Urine RBC NONE SEEN /HPF (NONE SEEN)
[2021-06-08 10:37] VITALS: TEMP 99.1
[2021-06-08 10:38] VITALS: BP 102/70; O2SAT 97
== END 2021-06-08 10:31 | disposition home or self-care (01) ==
LOC: ER 06:11
DX: R07.0 Pain in throat (principal); R30.0 Dysuria; Z91.018 Allergy to other foods; I10 Essential (primary) hypertension
CPT/HCPCS: 87070; 87081; 96372; 99283; J1100; 81003; 81015

== ENCOUNTER 2021-12-03 01:46 | Emergency (ER) | payer OTHER ==
--- OUTSIDE RECORDS SUMMARY | 2021-12-03 01:49 | XMS REPORT | Continuity of Care Document ---
:1955 Author Organization [facility] [place] [facility] t Address [address] [place] [address] Care Team Providers Name Role Phone Asked, Pcp Primary Care Physician Unavailable [place] DO Attending Clinician EASTON Attending Clinician Unavailable Doctor Unassigned, Name Attending Clinician Unavailable Melquiades BOSCH R Attending Clinician Payers Payer Name Policy Type Policy Number Effective Date Expiration Date S ource Problems Condition Condition Condition Status Onset Resolution Last Treating Co mments Source Name Details Category Date Date Treatment Clinician Date No known No known Disease Metho di active active st problems problems Hospit a l Allergies, Adverse Reactions, Alerts Allergy Allergy Status Severity Reaction(s) Onset Inactive Treating Comm ents Source Name Type Date Date Clinician NO KNOWN Drug Active Univers ALLERGIE Class ity of S [facility] [place] Social History Social Habit Start Date Stop Date Quantity Comments Source Exposure to Not sure [facility] SARS-CoV-2 (event) Medica l Branch Sex Assigned At [birth year] [facility] 00:00:00 00:00:00 Smoking Status Start Date Stop Date Source Tobacco smoking consumption unknown [facility] Medications Ordered Filled Start Stop Current Ordering Indication Dosage Frequency Signature Comments Components Source Medication Medication Date Date Medication? Clinician (SIG) Name Name benzonatate Yes [id number] 100mg Take 1 Univers 100 mg 07-18 [id number] capsule by ity of capsule 00:00: mouth 3 [place] 00 (three) Medical times Branch daily as needed for Cough. chlorphenir Yes [id number] 4mg Take 1 Univers amine 4 mg 07-1800 tablet by i ty of tablet 00:00: mouth [place] 00 every 6 Medical (six) Branch hours as needed for Allergies or Runny nose. multivitami Yes [id number] 1{capsu Take 1 Univers n capsule 07-18 [id number] le} capsule by i ty of 00:00: mouth [place] 00 daily. Medical Branch calcium-mag Yes [id number] Take as Univers nesium-zinc 07-18 [id number] directed i ty of 333-133-8.3 00:00: for daily [place] mg Tab 00 dose. Medical Branch vitamin 2020- No [id number] 1{tbl} Take 1 Univers D3-folic 07-18 [id number] tablet by it y of acid 5,000 00:00: 05:59 mouth [place] unit- 1 mg 00 :00 daily for [facility] Tab 30 days. Branch No known No No known Metho di medications 3-[address] 15:12: s Hospita 14 l Vital Signs Vital Name Observation Time Observation Value Comments Source Systolic blood 2020-07-18 14:39:00 131 mm[Hg] Univer [facility] Diastolic blood 2020-07-18 14:39:00 81 mm[Hg] Unive [facility] Heart rate 2020-07-18 14:39:00 85 /min [facility] Body temperature 2020-07-18 14:39:00 37.83 Robyn [facility] Respiratory rate 2020-07-18 14:39:00 20 /min [facility] Body height 2020-07-18 14:39:00 160 cm [facility] Oxygen saturation in 2020-07-18 14:39:00 95 /min [facility] Arterial blood by [facility] Pulse oximetry Branch Systolic blood 2020-07-18 14:39:00 131 mm[Hg] [facility] blood 2020-07-18 14:39:00 81 mm[Hg] Unive [facility] Heart rate 2020-07-18 14:39:00 85 /min [facility] Body temperature 2020-07-18 14:39:00 37.83 Robyn [facility] Respiratory rate 2020-07-18 14:39:00 20 /min [facility] Body height 2020-07-18 14:39:00 160 cm [facility] Oxygen saturation in 2020-07-18 14:39:00 95 /min [facility] Arterial blood by [facility] Pulse oximetry Branch Procedures Procedure Date / Time Performing Clinician Source Performed NOTICE OF PRIVACY 2020-07-18 14:23:56 Doctor Unassigned, No [facility] Name Medical Branch AUTHORIZATION FOR 2019-06-21 06:01:00 Doctor Unassigned, No [facility] RELEASE OF PHI Name Medical Branch DEXA AXIAL (HIP AND 2019-02-22 15:19:38 [facility] Branch NOTICE OF PRIVACY 2019-02-22 15:07:15 Doctor Unassigned, No [facility] Name Medical Branch CONSENT/REFUSAL FOR 2019-02-22 15:07:03 Doctor Unassigned, [facility] Name Medical Branch ASSIGNMENT OF BENEFITS 2019-02-22 15:06:51 Doctor Unassigned, No [facility] Plan of Care Planned Activity Planned Date Details Comments Source Future Scheduled 2021-08-13 INFLUENZA VACCINE Method [facility] Hospital Test 14:21:23 [code = INFLUENZA VACCINE] Future Scheduled 2021-08-13 COVID-19 VACCINE (1) Met [facility] Test 14:21:23 [code = COVID-19 VACCINE (1)] Future Scheduled 2021-08-13 Screening for [facility] Test 14:21:23 malignant neoplasm of cervix (procedure) [code = 011154112] Future Scheduled 2021-08-13 BREAST CANCER [facility] Test 14:21:23 SCREENING [code = BREAST CANCER SCREENING] Future Scheduled 2021-08-13 COLONOSCOPY SCREENING [facility] Test 14:21:23 [code = COLONOSCOPY SCREENING] Future Scheduled 2021-08-13 SHINGLES VACCINES [facility] Hospital Test 14:21:23 (#1) [code = SHINGLES VACCINES (#1)] Encounters Start End Encounter Admission Attending Care Care Encounter Source Date/Time Date/Time Type Type Clinicians Facility Department ID 2020-07-18 2020-07-18 Emergency [facility] [id number] 08:45:00 10:00:00 Marty Carbone [id number] [place] [id number] [place] [id number] 2020-07-18 2020-07-18 [facility] [id number] Univers 08:45:00 10:00:00 Marty Carbone [id number] i [place] [id number] [id number] [place] [address] Branch 2020-07-18 2020-07-18 Emergency [facility] ERT [id number] Univers 08:45:00 08:45:00 MARTY carlson [facility] [place] 2020-07-18 2020-07-18 Orders Doctor SAVANA [id number] 00:00:00 00:00:00 Only Unassigned, LISSY [id number] [place] [id number] 2020-07-18 2020-07-18 Orders Doctor SAWANT [id number] Univers 00:00:00 00:00:00 Only Unassigned, LISSY [id number] ity of [place] [facility] [id number] [place] as [phone] [facility] 009 Branch 2019-06-21 2019-06-21 Orders Doctor SAVANA [id number] 00:00:00 00:00:00 Only Unassigned, LISSY [id number] [place] [facility] [id number] 2019-06-21 2019-06-21 Orders Doctor SAVANA [id number] Univers 00:00:00 00:00:00 Only Unassigned, LISSY [id number] ity of [place] [facility] [id number] [place] as [id number] [facility] 009 Branch 2019-02-22 2019-02-22 [facility] [id number] 10:06:44 23:59:00 Encounter aChato [place] [id number] [place] [id number] [place] [id number] 2019-02-22 2019-02-22 [facility] [id number] [facility] 10:06:44 23:59:00 Encounter a, Chato R [place] [id number] ity [place] [id number] [phone] [facility] 800 Branch Results Test Description Test Time Test Comments Results Result Sour e Comments DEXA AXIAL (HIP 2019-02-22 HISTORY: [...] 0.6. CONCLUSION: No osteoporosis or osteopenia detected. [facility], Radiant Results Inft User - 02/22/2019 10:56 [...]
[2021-12-03 02:56] LABS: Urine Blood 1+ (Negative); Urine Glucose Negative (Negative); Urine Protein Negative (Negative); Urine Specific Gravity <=1.005 (1.005-1.030)
[2021-12-03] MEDS ORDERED: IBUPROFEN 400 MG TAB ONE (03:05)
--- NOTE | 2021-12-03 06:15 | EDPHYS ---
Physician Documentation [facility] Name: Kathrine España Age: 66 yrs Sex: Female : 1955 Arrival Date: 12/03/2021 Time: 01:49 Bed 3 Private MD: ED Physician Edward Oshea HPI: 12/03 20:59 This 66 yrs old Female presents to ER via Ambulatory with complaints of Groin kdr Pain. 20:59 Right flank and groin pain. Onset: The symptoms/episode began/occurred gradually, 3 kdr day(s) ago. Severity of symptoms: At their worst the symptoms were mild in the emergency department the symptoms are unchanged. The patient has not experienced similar symptoms in the past. The patient has not recently seen a physician. Historical: - Allergies: 02:16 No Known Allergies; tw5 - Home Meds: 02:16 losartan 50 mg Oral tab 1 tab once daily [Active]; tw - PMHx: 02:16 Diverticulitis; GERD; Hypertension; - PSHx: 02:16 section; tw5 - Immunization history:: Flu vaccine is not up to date. - Social history:: Smoking status: Patient denies any tobacco usage or history of. ROS: 20:59 Constitutional: Negative for fever, chills, and weight loss, Eyes: Negative for injury, kdr pain, redness, and discharge, ENT: Negative for injury, pain, and discharge, Neck: Negative for injury, pain, and swelling, Cardiovascular: Negative for chest pain, palpitations, and edema, Respiratory: Negative for shortness of breath, cough, wheezing, and pleuritic chest pain, : Negative for injury, bleeding, discharge, and swelling, MS/Extremity: Negative for injury and deformity, Skin: Negative for injury, rash, and discoloration, Neuro: Negative for headache, weakness, numbness, tingling, and seizure activity. Psych: Negative for depression, anxiety, suicide ideation, homicidal ideation, and hallucinations, Allergy/Immunology: Negative for hives, rash, and allergies, Endocrine: Negative for neck swelling, polydipsia, polyuria, polyphagia, and marked weight changes, Hematologic/Lymphatic: Negative for swollen nodes, abnormal bleeding, and unusual bruising. 20:59 Abdomen/GI: Positive for abdominal pain, Negative for nausea, vomiting, and diarrhea, abdominal distension, anorexia, dysphagia, hematemesis, black/tarry stool, rectal pain, rectal bleeding. Exam: 20:59 Constitutional: This is a well developed, well nourished patient who is awake, alert, kdr and in no acute distress. Head/Face: Normocephalic, atraumatic. Eyes: Pupils equal round and reactive to light, extra-ocular motions intact. Lids and lashes normal. Conjunctiva and sclera are non-icteric and not injected. Cornea within normal limits. Periorbital areas with no swelling, redness, or edema. Neck: Trachea midline, no thyromegaly or masses palpated, and no cervical lymphadenopathy. Supple, full range of motion without nuchal rigidity, or vertebral point tenderness. No Meningismus. Chest/axilla: Normal chest wall appearance and motion. Nontender with no deformity. No lesions are appreciated. Cardiovascular: Regular rate and rhythm with a normal S1 and S2. No gallops, murmurs, or rubs. Normal PMI, no JVD. No pulse deficits. Respiratory: Lungs have equal breath sounds bilaterally, clear to auscultation and percussion. No rales, rhonchi or wheezes noted. No increased work of breathing, no retractions or nasal flaring. Back: No spinal tenderness. No costovertebral tenderness. Full range of motion. Skin: Warm, dry with normal turgor. Normal color with no rashes, no lesions, and no evidence of cellulitis. MS/ Extremity: Pulses equal, no cyanosis. Neurovascular intact. Full, normal range of motion. Neuro: Awake and alert, GCS 15, oriented to person, place, time, and situation. Cranial nerves II-XII grossly intact. Motor strength 5/5 in all extremities. Sensory grossly intact. Cerebellar exam normal. Normal gait. Psych: Awake, alert, with orientation to person, place and time. Behavior, mood, and affect are within normal limits. 20:59 Abdomen/GI: Inspection: obese Bowel sounds: active, all quadrants, Palpation: soft, mild abdominal tenderness, in the right lower quadrant. Vital Signs: 02:14 BP 149 / 88; Pulse 88; Resp 18; Temp 98.9; Pulse Ox 95% on R/A; Weight 99.79 kg; Height tw5 5 ft. 3 in. (160.02 cm); Pain 8/10; 03:03 BP 123 / 86; Pulse 83; Resp 18 S; Pulse Ox 97% on R/A; as6 04:00 BP 122 / 79; Pulse 76; Resp 18 S; Pulse Ox 97% on R/A; as6 05:00 BP 121 / 81; Pulse 72; Resp 17 S; Pulse Ox 100% on R/A; as6 06:12 BP 119 / 76; Pulse 66; Resp 18 S; Pulse Ox 96% on R/A; as6 02:14 Body Mass Index 38.97 (99.79 kg, 160.02 cm) tw5 MDM: 06:14 Patient medically screened. kdr 20:59 Data reviewed: vital signs, nurses notes, lab test result(s), radiologic studies. kdr Counseling: I had a detailed discussion with the patient and/or guardian regarding: the historical points, exam findings, and any diagnostic results supporting the discharge/admit diagnosis, lab results, radiology results, the need for outpatient follow up. ED course: Patient was stable in the emergency department improved with interventions given. She was happy with the care provided the plan for discharge and follow-up. 12/03 02:57 Order name: Urine Dipstick-Ancillary; Complete Time: 06:15 EDMS 12/03 02:39 Order name: CT Stone Protocol kdr 12/03 02:39 Order name: Urine Dipstick-Ancillary (obtain specimen); Complete Time: 03:02 kdr Administered Medications: 03:02 Not Given (Other Intervention Used): Topaz (HYDROcodone-acetaminophen) 10 mg-325 mg 1 as6 tabs PO once 03:03 Drug: Motrin (ibuprofen) 800 mg Route: PO; as6 06:25 Follow up: Response: No adverse reaction as6 Disposition Summary: 12/03/21 06:14 Discharge Ordered Location: Home kdr Problem: new kdr Symptoms: have improved kdr Condition: Stable kdr Diagnosis - Groin Pain - Right kdr Followup: kdr - With: Private Physician - When: 2 - 3 days - Reason: If symptoms return, Further diagnostic work-up, Recheck today's complaints, Continuance of care, Re-evaluation by your physician Discharge Instructions: - Discharge Summary Sheet kdr - Hematuria, Adult kdr - Pelvic Pain, Female, [id number] kdr Forms: - Medication Reconciliation Form kdr - Thank You Letter kdr - Prescription Opioid Use kdr - Work release form as6 Prescriptions: - Tramadol 50 mg Oral Tablet - take 1 tablet by ORAL route every 8 hours as needed; 12 tablet; Refills: 0, kdr Product Selection Permitted Signatures: Dispatcher [employer] Edward Jane MD MD kdr Mely Sheikh tw5 Berny Vences RN RN as6
--- NOTE | 2021-12-03 06:15 | ER ---
Nurse's Notes [facility] Name: Kathrine España Age: 66 yrs Sex: Female : 1955 Arrival Date: 12/03/2021 Time: 01:49 Bed 3 Private MD: Diagnosis: Groin Pain - Right Presentation: 12/03 02:14 Chief complaint: Patient states: "I had diverticulitis a couple of weeks ago, but tw5 yesterday i started feeling pain on right side and down my hip into my groin.". Coronavirus screen: Vaccine status: Patient reports receiving the 2nd dose of the covid vaccine. [employer] Ebola Screen: Patient negative for fever greater than or equal to 101.5 degrees Fahrenheit, and additional compatible Ebola Virus Disease symptoms Patient denies exposure to infectious person. Patient denies travel to an Ebola-affected area in the 21 days before illness onset. Initial Sepsis Screen: Does the patient meet any 2 criteria? No. Patient's initial sepsis screen is negative. Does the patient have a suspected source of infection? No. Patient's initial sepsis screen is negative. Risk Assessment: Do you want to hurt yourself or someone else? Patient reports no desire to harm self or others. Onset of symptoms is unknown. 02:14 Method Of Arrival: Ambulatory tw5 02:14 Acuity: LYDIA 3 tw5 Triage Assessment: 02:16 General: Appears in no apparent distress. uncomfortable, Behavior is calm, cooperative, tw5 appropriate for age. Pain: Complains of pain in right femoral area Pain currently is 8 out of 10 on a pain scale. Historical: - Allergies: 02:16 No Known Allergies; tw5 - Home Meds: 02:16 losartan 50 mg Oral tab 1 tab once daily [Active]; tw5 - PMHx: 02:16 Diverticulitis; GERD; Hypertension; tw5 - PSHx: 02:16 section; tw5 - Immunization history:: Flu vaccine is not up to date. - Social history:: Smoking status: Patient denies any tobacco usage or history of. Screenin:03 Abuse screen: Denies threats or abuse. Denies injuries from another. Nutritional as6 screening: No deficits noted. Tuberculosis screening: No symptoms or risk factors identified. Fall Risk None identified. Assessment: 03:04 Reassessment: Patient and/or family updated on plan of care and expected duration. Pain as6 level reassessed. Patient is alert, oriented x 3, equal unlabored respirations, skin warm/dry/pink. 05:17 Reassessment: Patient appears in no apparent distress at this time. as6 06:12 Reassessment: Patient and/or family updated on plan of care and expected duration. Pain as6 level reassessed. Patient is alert, oriented x 3, equal unlabored respirations, skin warm/dry/pink. Patient states feeling better. Patient states symptoms have improved. Respiratory: Respiratory effort is even, unlabored, Respiratory pattern is regular, symmetrical. Vital Signs: 02:14 BP 149 / 88; Pulse 88; Resp 18; Temp 98.9; Pulse Ox 95% on R/A; Weight 99.79 kg; Height tw5 5 ft. 3 in. (160.02 cm); Pain 8/10; 03:03 BP 123 / 86; Pulse 83; Resp 18 S; Pulse Ox 97% on R/A; as6 04:00 BP 122 / 79; Pulse 76; Resp 18 S; Pulse Ox 97% on R/A; as6 05:00 BP 121 / 81; Pulse 72; Resp 17 S; Pulse Ox 100% on R/A; as6 06:12 BP 119 / 76; Pulse 66; Resp 18 S; Pulse Ox 96% on R/A; as6 02:14 Body Mass Index 38.97 (99.79 kg, 160.02 cm) tw5 ED Course: 01:49 Patient arrived in ED. bp1 02:07 Berny Vences, LIBIA is Primary Nurse. as6 02:16 Triage completed. tw5 02:16 Arm band placed on Patient placed in an exam room. tw5 02:19 Edward Oshea MD is Attending Physician. kdr 03:04 Bed in low position. Call light in reach. Side rails up X 1. Pulse ox on. NIBP on. as6 Pillow given. 03:47 CT Stone Protocol In Process Unspecified. EDMS 06:25 No provider procedures requiring assistance completed. Patient did not have IV access as6 during this emergency room visit. Administered Medications: 03:02 Not Given (Other Intervention Used): [place] (HYDROcodone-acetaminophen) 10 mg-325 mg 1 as6 tabs PO once 03:03 Drug: Motrin (ibuprofen) 800 mg Route: PO; as6 06:25 Follow up: Response: No adverse reaction as6 Medication: 03:04 VIS not applicable for this client. as6 Outcome: 06:14 Discharge ordered by . kdr 06:26 Discharged to home ambulatory. as6 06:26 Condition: stable 06:26 Discharge instructions given to patient, Instructed on discharge instructions, follow up and referral plans. no driving heavy equipment, medication usage, Demonstrated understanding of instructions, follow-up care, medications, Prescriptions given X 1. 06:26 Patient left the ED. as6 Signatures: Dispatcher [employer] EDMS Edward Oshea MD MD kdr [place], Brittany bp1 Wood, Tiffany 5 Berny Vences, RN RN as6
[2021-12-03 06:47] VITALS: TEMP 98.9
[2021-12-03 06:53] VITALS: BP 119/76; O2SAT 96
--- NOTE | 2021-12-03 14:48 | RAD REPORT ---
EXAM DESCRIPTION: CT - Stone Protocol - 12/03/2021 7:08 am CLINICAL HISTORY: 66 years Female Flank pain, kidney stone suspected TECHNIQUE: Axial CT imaging of the abdomen and pelvis was performed without oral or intravenous cont rast. Sagittal and coronal reconstructed images were then performed. The CT study is performed acco rding to ALARA (as low as reasonably achievable) or ALARA/IMAGE GENTLY, with automatic adjustment of mA and/or kV according to patient size. Performed on: 12/03/2021 at 3:26 AM COMPARISON: None. FINDINGS: Lung bases: The lung bases are grossly clear. Liver: The liver measures approximately 20 cm in craniocaudal dimension. No focal hepatic abnormaliti es are appreciated on this unenhanced scan. Liver attenuation is within normal limits. Spleen: The spleen is normal in size, configuration and attenuation. No focal splenic abnormalities a re appreciated on this unenhanced scan. Gallbladder and bile duct: The gallbladder is well distended and unremarkable. There is no biliary ductal dilatation. Pancreas: The pancreas is grossly normal in size and configuration. Adrenal Glands: There is an approximately 3.6 x 2.9 cm left adrenal myelolipoma. This was described o n the previous CT report from 11/04/2021 and 02/07/2021 Kidneys: The kidneys are normal in size and configuration. There is no evidence of hydronephrosis. Th ere is a punctate nonobstructing right renal calculus. No focal renal abnormalities are identified. Stomach: The stomach is grossly normal. There is no definite hiatal hernia. Bowel: The bowel gas pattern is non specific and non obstructive. Appendix: The appendix is normal. Free air: There is no evidence of free air. Free fluid: There is no evidence of free fluid. Vasculature: The aorta is normal in caliber and contour. The inferior vena cava is grossly unremarkab le. Lymphadenopathy: No pathologic lymphadenopathy is identified. Bladder: The bladder is well distended and smooth in contour. Reproductive: The uterus is grossly within normal limits. Bones: No acute osseous abnormalities are identified. Soft tissues: No acute soft tissue abnormalities are identified. IMPRESSION: 1. No evidence of acute intra-abdominal or intrapelvic pathology. 2. Punctate nonobstructing right renal calculus. 3. Approximately 3.6 x 2.9 cm left adrenal myelolipoma. This was described on the previous CT repor t from 11/04/2021 and 02/07/2021. 4. Hepatomegaly. Electronically signed by: Antonieta Ferrer DO 12/03/2021 5:58 AM CDT Due to temporary technical issues with the PACS/Fluency reporting system, reports are being signed by the in house radiologists without review as a courtesy to insure prompt reporting. The interpreting radiologist is fully responsible for the content of the report.
== END 2021-12-03 06:26 | disposition home or self-care (01) ==
LOC: ER 01:46
DX: R10.31 Right lower quadrant pain (principal); I10 Essential (primary) hypertension; K21.9 Gastro-esophageal reflux disease without esophagitis
CPT/HCPCS: 74176; 76377; 81003; 99284

== ENCOUNTER 2023-12-15 10:14 | Emergency (ER) | payer OTHER ==
[2023-12-15 11:00] LABS: Absolute Basophils 0.1 K/uL (0-0.5); Absolute Eosinophils 0.1 K/uL (0-0.5); Absolute Lymphocytes (CBC) 2.2 K/uL (0.7-4.9); Absolute Monocytes 0.6 K/uL (0.1-1.3); Absolute Neutrophil 6.3 K/uL (1.8-8.0); Basophils % 0.9 % (0-1.3); Hemoglobin 14.1 g/dL (12.0-15.0); Lymphocytes % 24.1 % (15.3-44.8); MCH 29.1 pg (27.0-35.0); MCHC 33.5 g/dL (32.0-36.0); MCV 86.8 fL (80-100); MPV 10.1 fL (7.6-11.3); Platelets 223 thou/uL (152-406); RBC Red Blood Cell Count 4.84 M/uL (3.86-4.86); Red Cell Distribution Width 13.2 % (12.1-15.2)
[2023-12-15 11:46] LABS: Anion Gap 6.6 mEq/L (5.0-15.0); Potassium 3.6 mEq/L (3.5-5.1)
[2023-12-15] MEDS ORDERED: DIPHENHYDRAMINE 50 MG/ML VIAL ONE (12:16)
[2023-12-15] MEDS ORDERED: dexAMETHasone 10 MG/ML VIAL ONE (12:16)
[2023-12-15] MEDS ORDERED: METOCLOPRAMIDE 10 MG/2mL INJ ONE (12:16)
[2023-12-15] MEDS ORDERED: NA CHLORIDE 0.9% 1,000 ML ONE (12:17)
--- NOTE | 2023-12-15 12:47 | ER ---
Nurse's Notes [facility] Name: Kathrine España Age: 68 yrs Sex: Female : 1955 Arrival Date: 12/15/2023 Time: 10:14 Bed 12 Private MD: Diagnosis: Acute stress reaction;Anxiety disorder, unspecified;Headache Presentation: 12/14 10:33 Chief complaint: Patient states: "I was at work and started feeling weak. I decided to mb check my BP and it was 165/110.". Coronavirus screen: At this time, the client does not indicate any symptoms associated with coronavirus-19. Ebola Screen: No symptoms or risks identified at this time. Initial Sepsis Screen: Does the patient meet any 2 criteria? No. Patient's initial sepsis screen is negative. Does the patient have a suspected source of infection? No. Patient's initial sepsis screen is negative. Risk Assessment: Do you want to hurt yourself or someone else? Patient reports no desire to harm self or others. Onset of symptoms was December 15, 2023. 10:33 Method Of Arrival: Ambulatory 9 10:33 Acuity: LYDIA 3 mb9 Triage Assessment: 10:35 Headache History: The patient has had previous headaches. Headache History: The patient mb9 has had previous headaches and this one is similar to previous episodes. General: Appears in no apparent distress. Behavior is calm, cooperative. Pain: Denies pain. EENT: No signs and/or symptoms were reported regarding the EENT system. Neuro: Barger Agitation-Sedation Scale (RASS): 0 - Alert and Calm Level of Consciousness is awake, alert, obeys commands, Oriented to person, place, time, situation, Appropriate for age Reports headache. Cardiovascular: Patient's skin is warm and dry. Respiratory: Airway is patent Respiratory effort is even, unlabored, Respiratory pattern is regular, symmetrical. GI: Reports nausea. : No signs and/or symptoms were reported regarding the genitourinary system. Derm: Skin is pink, warm \\T\\ dry. Musculoskeletal: Range of motion: intact in all extremities. Historical: - Allergies: 10:35 No Known Allergies; mb9 - Home Meds: 10:35 losartan 50 mg Oral tab 1 tab once daily [Active]; mb9 - PMHx: 10:35 Diverticulitis; GERD; Hypertension; mb9 - PSHx: 10:35 section; mb9 - Immunization history:: Adult Immunizations up to date. - Infectious Disease History:: Denies. - Social history:: Smoking status: Patient denies any tobacco usage or history of. Screenin:22 [facility] ED Fall Risk Assessment (Adult) History of falling in the last 3 months, kc6 including since admission No falls in past 3 months (0 pts) Confusion or Disorientation No (0 pts) Intoxicated or Sedated No (0 pts) Impaired Gait No (0 pts) Mobility Assist Device Used No (0 pt) Altered Elimination No (0 pt) Score/Fall Risk Level 0 - 2 = Low Risk. Abuse screen: Denies threats or abuse. Denies injuries from another. Nutritional screening: No deficits noted. Tuberculosis screening: No symptoms or risk factors identified. Assessment: 12:28 General: Appears in no apparent distress. comfortable, well groomed, well developed, kc6 Behavior is calm, cooperative, appropriate for age. Neuro: Level of Consciousness is awake, alert, obeys commands, Oriented to person, place, time, situation, Appropriate for age Reports headache. Respiratory: Airway is patent Trachea midline Respiratory effort is even, unlabored, Respiratory pattern is regular, symmetrical. GI: Reports nausea, Patient currently denies abdominal pain, diarrhea, vomiting. : No signs and/or symptoms were reported regarding the genitourinary system. EENT: No signs and/or symptoms were reported regarding the EENT system. Derm: No signs and/or symptoms reported regarding the dermatologic system. Skin is intact, is healthy with good turgor, Skin is pink, warm \\T\\ dry. Musculoskeletal: No signs and/or symptoms reported regarding the musculoskeletal system. Circulation, motion, and sensation intact. Capillary refill < 3 seconds, Range of motion: intact in all extremities. Vital Signs: 10:33 BP 158 / 85; Pulse 69; Resp 18; Temp 98.1; Pulse Ox 100% on R/A; Weight 94.35 kg; mb9 Height 5 ft. 2 in. ; Pain 0/10; 12:28 BP 151 / 75; Pulse 58; Resp 18 S; Pulse Ox 100% on R/A; kc6 10:33 Body Mass Index 38.04 (94.35 kg, 157.48 cm) mb9 10:33 Pain Scale: Adult mb9 ED Course: 10:18 Patient arrived in ED. mg5 10:24 Patricio Randhawa MD is Attending Physician. ec2 10:27 Patricio Randhawa MD is Attending Physician. ec2 10:34 Triage completed. mb9 10:35 Arm band placed on. mb9 10:47 Basic Metabolic Panel Sent. bc6 10:47 CBC with Diff Sent. bc6 10:47 Initial lab(s) drawn, by me, sent to lab. Inserted saline lock: 22 gauge in left bc6 antecubital area, using aseptic technique. Blood collected. 10:54 EKG done, by ED staff, reviewed by Patricio Randhawa MD. bc6 12:21 Hiral Don, RN is Primary Nurse. kc6 12:22 Patient has correct armband on for positive identification. Bed in low position. Call kc6 light in reach. Side rails up X 1. Adult w/ patient. Pulse ox on. NIBP on. 13:01 No provider procedures requiring assistance completed. IV discontinued, intact, as6 bleeding controlled, No redness/swelling at site. Pressure dressing applied. 13:02 Provided Education on: follow up. as6 Administered Medications: 12:27 Drug: NS 0.9% IV 1000 ml IV at 1 bolus Per protocol; 1000 mL bolus Route: IV; Rate: 1 kc6 bolus; Site: left antecubital; 13:00 Follow up: Response: No adverse reaction; IV Status: Completed infusion; IV Intake: as6 1000ml 12:27 Drug: Decadron - Dexamethasone IVP 10 mg IVP once Route: IVP; Site: left antecubital; 6 13:01 Follow up: Response: No adverse reaction as6 12:27 Drug: metoCLOPramide IVP 10 mg IVP once; over 1 to 2 minutes Route: IVP; Site: left kc6 antecubital; 13:01 Follow up: Response: No adverse reaction as6 12:27 Drug: diphenhydrAMINE IVP 25 mg IVP once Route: IVP; Site: left antecubital; kc6 13:01 Follow up: Response: No adverse reaction as6 Medication: 13:02 VIS not applicable for this client. as6 Intake: 13:00 IV: 1000ml; Total: 1000ml. as6 Outcome: 12:47 Discharge ordered by . ec2 13:02 Discharged to home ambulatory, with significant other, as6 13:02 Condition: stable 13:02 Discharge instructions given to patient, Instructed on discharge instructions, follow up and referral plans. Demonstrated understanding of instructions, follow-up care, 13:02 Patient left the ED. as6 Signatures: Berny Vences RN RN as6 Hiral Don RN RN kc6 Arminda Yanez RN RN mb9 Morelia Macario 6 Catherine Cabrera mg5 Patricio Randhawa MD MD ec2
--- NOTE | 2023-12-15 12:47 | EDPHYS ---
Physician Documentation [facility] Name: Kathrine España Age: 68 yrs Sex: Female : 1955 Arrival Date: 12/15/2023 Time: 10:14 Bed 12 Private MD: ED Physician Patricio Randhawa HPI: 12/14 10:57 This 68 yrs old Female presents to ER via Ambulatory with complaints of High ec2 Blood Pressure, Headache, Nausea. 10:57 Patient arrives today for evaluation of generalized weakness along with elevated blood ec2 pressure. Patient reports she was at work and generally feeling unwell. Reports she been having headache for several days, was seen here 2 days ago for similar symptoms.. Historical: - Allergies: 10:35 No Known Allergies; mb9 - Home Meds: 10:35 losartan 50 mg Oral tab 1 tab once daily [Active]; mb9 - PMHx: 10:35 Diverticulitis; GERD; Hypertension; mb9 - PSHx: 10:35 section; mb9 - Immunization history:: Adult Immunizations up to date. - Infectious Disease History:: Denies. - Social history:: Smoking status: Patient denies any tobacco usage or history of. ROS: 10:57 Constitutional: as per hpi ec2 Exam: 10:57 Constitutional: GEN: NAD Head: atraumatic Eyes: EOMI Ears: External ears are ec2 normal. CV: regular rate LUNGS: no respiratory distress ABD: non-distended SKIN: no evidence of rashes MSK: no evidence of trauma NEURO: moves all extremities equally, cranial nerves II through XII intact, strength intact upper extremities. Vital Signs: 10:33 BP 158 / 85; Pulse 69; Resp 18; Temp 98.1; Pulse Ox 100% on R/A; Weight 94.35 kg; mb9 Height 5 ft. 2 in. ; Pain 0/10; 12:28 BP 151 / 75; Pulse 58; Resp 18 S; Pulse Ox 100% on R/A; kc6 10:33 Body Mass Index 38.04 (94.35 kg, 157.48 cm) mb9 10:33 Pain Scale: Adult mb9 MDM: 10:27 Patient medically screened. ec2 10:57 Data reviewed: vital signs. ED course: Patient arrives today for evaluation of ec2 headache, generalized weakness. Examination remarkable for neuro intact and vision is otherwise in no acute distress with a reassuring examination. Will obtain lab work, treat the patient symptoms and reassess. Differential diagnosis include electrolyte disturbances, anemia, renal dysfunction.. 10:58 ED course: External records reviewed by myself, show patient was here 2 days ago, had ec2 lab work that showed hypokalemia with potassium 3.1, reassuring CBC otherwise. . 10:59 ED course: EKG obtained, independently reviewed and interpreted by me, shows normal ec2 sinus rhythm, rate of 68, no acute ST segment elevations, intervals are nonconcerning.. 11:59 ED course: CBC is reassuring. Metabolic profile reassuring. . ec2 12:46 ED course: Reassessment patient with improvement and symptoms. Will discharge home, ec2 suspect stress reaction/anxiety. Return precautions given.. 12:47 ED course: MDM: Differential diagnosis as documented above in ED course; All lab tests ec2 ordered and reviewed as documented above; Independent interpretation of tests: EKG as above; External records reviewed: Previous ED visit and associated lab work; . 12/14 10:29 Order name: Basic Metabolic Panel; Complete Time: 11:59 ec2 12/14 10:29 Order name: CBC with Diff; Complete Time: 11:59 ec2 12/14 10:29 Order name: Cardiac monitoring; Complete Time: 12:15 ec2 12/14 10:29 Order name: EKG - Nurse/Tech; Complete Time: 10:47 ec2 12/14 10:29 Order name: IV Saline Lock; Complete Time: 10:47 ec2 12/14 10:29 Order name: Labs collected and sent; Complete Time: 10:47 ec2 12/14 10:29 Order name: O2 Per Protocol; Complete Time: 12:15 ec2 12/14 10:29 Order name: O2 Sat Monitoring; Complete Time: 12:15 ec2 12/14 11:02 Order name: Labs - recollect needed: recollect green top; Complete Time: 11:14 bd Administered Medications: 12:27 Drug: NS 0.9% IV 1000 ml IV at 1 bolus Per protocol; 1000 mL bolus Route: IV; Rate: 1 kc6 bolus; Site: left antecubital; 13:00 Follow up: Response: No adverse reaction; IV Status: Completed infusion; IV Intake: as6 1000ml 12:27 Drug: Decadron - Dexamethasone IVP 10 mg IVP once Route: IVP; Site: left antecubital; kc6 13:01 Follow up: Response: No adverse reaction as6 12:27 Drug: metoCLOPramide IVP 10 mg IVP once; over 1 to 2 minutes Route: IVP; Site: left kc6 antecubital; 13:01 Follow up: Response: No adverse reaction as6 12:27 Drug: diphenhydrAMINE IVP 25 mg IVP once Route: IVP; Site: left antecubital; kc6 13:01 Follow up: Response: No adverse reaction as6 Disposition Summary: 12/15/23 12:47 Discharge Ordered Notes: Location: Home ec2 Condition: Stable ec2 Diagnosis - Acute stress reaction ec2 - Anxiety disorder, unspecified ec2 - Headache ec2 Followup: ec2 - With: Private Physician - When: - Reason: Re-evaluation by your physician Discharge Instructions: - Discharge Summary Sheet ec2 - Managing Anxiety, Adult ec2 Forms: - Medication Reconciliation Form ec2 - Antibiotic Education ec2 - Prescription Opioid Use ec2 - Patient Portal Instructions ec2 - Leadership Thank You Letter ec2 Signatures: Dispatcher [employer] EDMS Yandy Chowdary Kaitlyn, RN RN kc6 Arminda Yanez RN RN mb9 Patricio Randhawa MD MD ec2 Berny Vences RN as6 Corrections: (The following items were deleted from the chart) 10:29 10:29 BASIC METABOLIC PANEL+C.LAB.BRZ ordered. EDMS EDMS 10:29 10:29 CBC+H.LAB.BRZ ordered. EDMS EDMS
[2023-12-15 13:31] VITALS: BP 151/75; TEMP 98.1; O2SAT 100
--- NOTE | 2023-12-16 16:36 | EKG ---
Test Date: 2023-12-15 Test Time: 10:53:04 Campus Recruiter: CLAU MEASUREMENT RESULTS: Intervals: Rate: 68 ID: [id number] QRSD: 84 QT: 376 QTc: 399 [place]: P: -16 ID: [id number] QRS: 10 T: 47 INTERPRETIVE STATEMENTS: Normal sinus rhythm Low voltage QRS Borderline ECG Compared to ECG 02/07/2021 12:20:52 Low QRS voltage now present Electronically Signed On 12-16-23 16:33:20 CDT by Daniel Knowles
== END 2023-12-15 13:02 | disposition home or self-care (01) ==
LOC: ER 10:14
DX: F43.0 Acute stress reaction (principal); F41.9 Anxiety disorder, unspecified; R51.9 Headache, unspecified; I10 Essential (primary) hypertension
CPT/HCPCS: 96361; 93005; 85025; 80048; 36415; 96375; 96374; 99284; J2765; J1200; J1100; J7030

== ENCOUNTER 2025-03-10 08:00 | Emergency (ER) | payer OTHER ==
[2025-03-10] MEDS ORDERED: DIPHENHYDRAMINE 25 MG TAB/CAP ONE (08:20)
[2025-03-10] MEDS ORDERED: KETOROLAC 30 MG/ML INJ ONE (08:20)
[2025-03-10] MEDS ORDERED: FAMOTIDINE 20 MG TAB ONE (08:21)
--- NOTE | 2025-03-10 09:13 | RAD REPORT ---
EXAMINATION: ONE VIEW CHEST XR CLINICAL INDICATION: COUGH TECHNIQUE: Frontal chest projection is submitted. Examination is limited by patient positioning and t echnique. COMPARISON: 02/07/2021 FINDINGS: The lungs are well inflated and clear. The heart is upper limit of normal in size. No displaced fract ures identified. IMPRESSION: No acute intrathoracic abnormalities.
--- NOTE | 2025-03-10 09:19 | ER ---
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 Coronavirus screen: At this time, the client does not indicate any symptoms associated with coronavirus-19. Ebola Screen: No symptoms or risks identified at this time. Anaphylaxis evaluation, no signs or symptoms of anaphylaxis were noted. Initial Sepsis Screen: Does the patient meet any 2 criteria? No. Patient's initial sepsis screen is negative. Does the patient have a suspected source of infection? No. Patient's initial sepsis screen is negative. Risk Assessment: Do you want to hurt yourself or someone else? Patient reports no desire to harm self or others. Onset of symptoms was March 09, 2025. 08:06 Method Of Arrival: Ambulatory iw 08:06 Acuity: LYDIA 4 iw 09:38 Onset: The symptoms/episode began/occurred acutely. cm10 Historical: - Allergies: 08:08 No Known Allergies; iw - PMHx: 08:08 Diverticulitis; GERD; Hypertension; iw - PSHx: 08:08 section; iw - Immunization history:: Adult Immunizations unknown. - Infectious Disease History:: Denies. - Social history:: Smoking status: Patient denies any tobacco usage or history of. Screenin:33 [facility] ED Fall Risk Assessment (Adult) History of falling in the last 3 months, cm10 including since admission No falls in past 3 months (0 pts) Confusion or Disorientation No (0 pts) Intoxicated or Sedated No (0 pts) Impaired Gait No (0 pts) Mobility Assist Device Used No (0 pt) Altered Elimination No (0 pt) Score/Fall Risk Level 0 - 2 = Low Risk Oriented to surroundings, Maintained a safe environment, Hourly rounding (assess needs \T\ fall precautionary measures) done. Abuse screen: Denies threats or abuse. Denies injuries from another. Nutritional screening: No deficits noted. Tuberculosis screening: No symptoms or risk factors identified. Assessment: 08:33 General: Appears in no apparent distress. comfortable, Behavior is calm, cooperative, cm10 appropriate for age. Neuro: No deficits noted. Level of Consciousness is awake, alert, obeys commands, Oriented to person, place, time, situation, Appropriate for age. Cardiovascular: Patient's skin is warm and dry. Respiratory: No deficits noted. Airway is patent Respiratory effort is even, unlabored, Respiratory pattern is regular, symmetrical, Breath sounds are clear bilaterally. 09:36 Reassessment: Patient appears in no apparent distress at this time. Patient and/or cm10 family updated on plan of care and expected duration. Pain level reassessed. Patient is alert, oriented x 3, equal unlabored respirations, skin warm/dry/pink. Reassessment: Patient states feeling better. Patient states symptoms have improved. Pain: Denies pain. Vital Signs: 08:06 BP 153 / 81; Pulse 88; Resp 16; Temp 98.3; Pulse Ox 99% on R/A; Weight 95.25 kg; Height iw 5 ft. 2 in. ; 09:16 BP 109 / 67; Pulse 76; Resp 15; Pulse Ox 96% on R/A; cm10 08:06 Body Mass Index 38.41 (95.25 kg, 157.48 cm) iw ED Course: 08:02 Patient arrived in ED. im 08:03 [facility]. dr5 08:03 Conrado Mitchell MD is Attending Physician. dr5 08:07 Triage completed. iw 08:15 Silke Chauhan, LIBIA is Primary Nurse. cm10 08:33 Arm band placed on right wrist. Patient placed in an exam room, on a stretcher. cm10 08:33 Patient has correct armband on for positive identification. Bed in low position. Call cm10 light in reach. Side rails up X 1. Pulse ox on. NIBP on. 09:01 Chest Single View XRAY In Process Unspecified. EDMS 09:37 No provider procedures requiring assistance completed. Patient did not have IV access cm10 during this emergency room visit. 09:38 Provided Education on: Follow-up instructions. cm10 Administered Medications: 08:24 Not Given (Duplicate Order): [id number] mg PO once cm10 08:30 Drug: diphenhydrAMINE PO 25 mg PO once Route: PO; cm10 09:15 Follow up: Response: No adverse reaction cm10 08:30 Drug: Ketorolac IM 30 mg IM once Route: IM; Site: left gluteus; cm10 09:15 Follow up: Response: No adverse reaction cm10 08:30 Drug: Famotidine PO 20 mg PO once Route: PO; cm10 09:15 Follow up: Response: No adverse reaction cm10 Medication: 08:33 VIS not applicable for this client. cm10 Outcome: 09:19 Discharge ordered by . dr5 09:38 Discharged to home ambulatory, with family, cm10 09:38 Condition: good :38 Discharge instructions given to patient, Instructed on discharge instructions, follow up and referral plans. medication usage, Demonstrated understanding of instructions, follow-up care, medications, Prescriptions given X , :38 Patient left the ED. cm10 Signatures: Dispatcher [employer] EDLisa Sweet RN RN iw Mendoza, Itzel im Martinez, Clarissa, RN RN cmIvan Broderick, PAPER ROLL MACHINE OPERATOR-C PAPER ROLL MACHINE OPERATOR-Cdr5 Corrections: (The following items were deleted from the chart) 08:08 08:06 Pulse 88bpm; Resp 16bpm; Pulse Ox 99% RA; iw alexia
--- NOTE | 2025-03-10 09:19 | EDPHYS ---
Physician Documentation [facility] Name: Kathrine España Age: 69 yrs Sex: Female : 1955 Arrival Date: 03/10/2025 Time: 08:00 Bed 16 Private MD: ED Physician Conrado Mitchell HPI: 03/10 08:13 This 69 yrs old Female presents to ER via Ambulatory with complaints of Cough, dr5 Allergic Reaction. 08:13 Onset: The symptoms/episode began/occurred yesterday. 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 Patient reports she called her primary care doctor yesterday who recommended cough drops. Patient reports has been taking cough drops which helps the pain but states that she feels like her lip is a little bit swollen. Patient denies shortness of breath, chest pain, nausea, vomiting, diarrhea.. Historical: - Allergies: 08:08 No Known Allergies; iw - PMHx: 08:08 Diverticulitis; GERD; Hypertension; iw - PSHx: 08:08 section; iw - Immunization history:: Adult Immunizations unknown. - Infectious Disease History:: Denies. - Social history:: Smoking status: Patient denies any tobacco usage or history of. ROS: 08:13 Constitutional: as per hpi dr5 Exam: 08:13 Constitutional: This is a well developed, well nourished patient who is awake, alert, dr5 and in no acute distress. Head/Face: Normocephalic, atraumatic. Eyes: Pupils equal round and reactive to light, extra-ocular motions intact. Lids and lashes normal. Conjunctiva and sclera are non-icteric and not injected. Cornea within normal limits. Periorbital areas with no swelling, redness, or edema. ENT: Nares patent. No nasal discharge, no septal abnormalities noted. Tympanic membranes are normal and external auditory canals are clear. Oropharynx with no redness, swelling, or masses, exudates, or evidence of obstruction, uvula midline. Mucous membranes moist. Chest/axilla: Normal chest wall appearance and motion. Nontender with no deformity. No lesions are appreciated. Cardiovascular: Regular rate and rhythm with a normal S1 and S2. Normal PMI, no JVD. No pulse deficits. Respiratory: Lungs have equal breath sounds bilaterally, clear to auscultation. No rales, rhonchi or wheezes noted. No increased work of breathing, no retractions or nasal flaring. Abdomen/GI: Soft, non-tender, non-distended Back: No spinal tenderness. No costovertebral tenderness. Full range of motion. Skin: Warm, dry with normal turgor. Normal color with no rashes, no lesions, and no evidence of cellulitis. MS/ Extremity: Pulses equal, no cyanosis. Neurovascular intact. Full, normal range of motion. Neuro: Awake and alert, GCS 15, oriented to person, place, time, and situation. Cranial nerves II-XII grossly intact. Motor strength 5/5 in all extremities. Sensory grossly intact. Cerebellar exam normal. Normal gait. Vital Signs: 08:06 BP 153 / 81; Pulse 88; Resp 16; Temp 98.3; Pulse Ox 99% on R/A; Weight 95.25 kg; Height iw 5 ft. 2 in. ; 09:16 BP 109 / 67; Pulse 76; Resp 15; Pulse Ox 96% on R/A; cm10 08:06 Body Mass Index 38.41 (95.25 kg, 157.48 cm) iw MDM: 08:03 Medical Screening Exam initiated dr5 09:20 Differential Diagnosis: Bronchitis Upper Respiratory Infection Sinusitis Allergic dr5 Rhinitis Pneumonia. Data reviewed: vital signs, nurses notes, radiologic studies, plain films. Consideration of Admission/Observation Escalation of care including admission/observation considered. Admission considered patient found to be febrile with pneumonia. I considered the following discharge prescriptions or medication management in the emergency department I discussed and recommended Over The Counter medications, Medications were administered in the Emergency Department. See MAR. Test considered but Not performed: CT: CT scan considered but patient's vital signs and CXR were normal.. Care significantly affected by the following chronic conditions: GERD, HTN. Care significantly affected by the following Social Determinants of Health: Poor access to healthcare and/or lack of insurance, Poor access to transportation, Problems related to employment. Counseling: I had a detailed discussion with the patient and/or guardian regarding the historical points, exam findings, and any diagnostic results supporting the discharge/admit diagnosis, the presence of at least one elevated blood pressure reading (>120/80) during this emergency department visit, radiology results, the need for outpatient follow up, for definitive care, a family practitioner, to return to the emergency department if symptoms worsen or persist or if there are any questions or concerns that arise at home. Medication response: Benadryl, Pepcid, Toradol. Response to treatment: the patient's symptoms have resolved after treatment, the patient's condition has returned to base line, the patient is now symptom free. Special discussion: I have referred the patient to see his PCP for further evaluation of high blood pressure. I discussed with the patient/guardian in detail that at this point there is no indication for admission to the hospital. It is understood, however, that if the symptoms persist or worsen the patient needs to return immediately for re-evaluation. Based on the history and exam findings, there is no indication for further emergent testing or inpatient evaluation. I discussed with the patient/guardian the need to see the primary care provider for further evaluation of the symptoms. Special discussion: Based on the history and exam findings, there is no indication for further emergent testing or inpatient evaluation. ED course: Patient reports she is feeling better. Will have patient follow up with primary care doctor. All questions answered. Strict ER precautions given.. 03/10 08:11 Order name: Chest Single View XRAY; Complete Time: 09:19 dr5 Administered Medications: 08:24 Not Given (Duplicate Order): [id number] mg PO once cm10 08:30 Drug: diphenhydrAMINE PO 25 mg PO once Route: PO; cm10 09:15 Follow up: Response: No adverse reaction cm10 08:30 Drug: Ketorolac IM 30 mg IM once Route: IM; Site: left gluteus; cm10 09:15 Follow up: Response: No adverse reaction cm10 08:30 Drug: Famotidine PO 20 mg PO once Route: PO; cm10 09:15 Follow up: Response: No adverse reaction cm10 Disposition Summary: 03/10/25 09:19 Discharge Ordered Notes: Location: Home dr5 Condition: Stable dr5 Diagnosis - Cough dr5 Followup: dr5 - With: Emergency Department - When: As needed - Reason: Worsening of condition Followup: dr5 - With: Private Physician - When: 1 - 2 days - Reason: Recheck today's complaints, Continuance of care, Re-evaluation by your physician Discharge Instructions: - Discharge Summary Sheet dr5 - Cough, Adult, [id number] dr5 Forms: - Medication Reconciliation Form dr5 - Patient Portal Instructions dr5 - Leadership Thank You Letter dr5 Prescriptions: - Bromfed DM 2-30-10 mg/5 mL Oral syrup - administer 10 milliliter ORAL route every 8 hours as needed for allergy dr5 symptoms; 240 milliliter; Refills: 0, Product Selection Permitted Addendum: 03/13/2025 07:40 Co-signature as Attending Physician, Conrado Mitchell MD I reviewed the patient's care r n provided by the Advanced Practice Provider and agree with the diagnosis and treatment plan. Signatures: Dispatcher [employer] Lisa Larios RN RN iw Nieto, Roman, MD MD rn Martinez, Clarissa, RN RN cm10 Ivan Swan, SEISMOGRAPH COMPUTER-C SEISMOGRAPH COMPUTER-Cdr5
[2025-03-10 09:57] VITALS: TEMP 98.3
[2025-03-10 09:59] VITALS: BP 109/67; O2SAT 96
== END 2025-03-10 09:38 | disposition home or self-care (01) ==
LOC: ER 08:00
DX: R05.9 Cough, unspecified (principal)
CPT/HCPCS: 71045; 96372; 99284